=== PATIENT | male | born 1960 | race Caucasian/White ===

== ENCOUNTER 2017-01-07 06:01 | Inpatient (IN) | payer OTHER ==
--- NOTE | 2016-12-31 18:17 | PREOPHP ---
DATE OF ADMISSION: 01/07/2017 The patient is being admitted electively on 01/07/[address] Drake Jordan. HISTORY OF PRESENT ILLNESS: This 56-year-old man is being admitted now to have a right total knee r eplacement by Dr. Jordan. The patient was injured at work 11/24/2009. He has been having increas ing pain in his right knee and has failed medical therapy. He has decided to undergo a total knee r eplacement to relieve his pain and improve his ability to walk. CURRENT MEDICATIONS: The patient is not on any chronic medication. PAST MEDICAL HISTORY: Unremarkable. ALLERGIES: HE HAS NO KNOWN DRUG ALLERGIES. SURGICAL HISTORY: Right knee arthroscopy. FAMILY HISTORY: Both parents are . The cause of unknown for both mother and father. SOCIAL HISTORY: The patient does not smoke and does not drink alcohol. 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 REVIEW OF SYSTEMS: CONSTITUTIONAL: No chills, no weight gain, no loss of appetite, no fever, no weakness, no weight lo ss, no fatigue. OPHTHALMOLOGIC: Negative. EARS, NOSE AND THROAT: Negative. CARDIORESPIRATORY: He denies any exertional chest pain, chest pressure, cough, ankle swelling. GASTROINTESTINAL: Negative. HEMATOLOGIC AND LYMPHATIC: Negative. UROLOGIC: Negative. PHYSICAL EXAMINATION: GENERAL: At this time reveals a well-developed man. No apparent distress. VITAL SIGNS: Temperature 98, blood pressure 126/86, heart rate 76. Weight 254. HEAD: Normocephalic. EYES: Extraocular muscles intact. NOSE AND MOUTH: Normal. NECK: Supple. No neck vein distention. LUNGS: Clear to auscultation. HEART: Regular rhythm. No murmurs, gallops or rubs. ABDOMEN: Soft, nontender. No masses or megaly. EXTREMITIES: No peripheral edema. Pedal pulses were 2+ bilaterally. NEUROLOGIC: Grossly intact. IMPRESSION: This patient is cleared for surgery. I will follow the patient along with you postoper atively. Dictated By: RYDER MORRISON MD, ND/JUSTYN Conf#: [id number] DID#: [id number]
[2017-01-06 11:22] VITALS: BMI 29.5
[~2017-01-07] VITALS: Ht 193 cm; Wt 111.3 kg
[2017-01-07] VITALS (19 sets, daily range): BP systolic 92–152; BP diastolic 50–81; PULSE 65–104; RESP 13–30; Ht 193 cm; Wt 111.3 kg
[2017-01-07] MEDS: LACTATED RINGER'S 1,000 ML IV SCH (06:06)
[2017-01-07] MEDS ORDERED: CEFAZOLIN 2 GM/50 ML (PMX) 50 ML IVPB ONE (06:30)
[2017-01-07] MEDS ORDERED: METOCLOPRAMIDE 10 MG TAB PO ONE (06:30)
[2017-01-07] MEDS ORDERED: CELECOXIB 200 MG CAP PO ONE (06:30)
[2017-01-07] MEDS ORDERED: SOD CHLORIDE 0.9% IVPB ONE ×6 (06:30)
[2017-01-07] MEDS ORDERED: FAMOTIDINE 20 MG TAB PO ONE (06:30)
[2017-01-07] MEDS ORDERED: BUPIVACAINE 0.5% (SDV) 40 ML, morphine SULFATE (PF) 10 MG, CLONIDINE 100 MCG, EPINEPHri... IRR SCH ×7 (06:30)
[2017-01-07] MEDS ORDERED: TRANEXAMIC ACID IVPB ONE ×6 (06:30)
[2017-01-07] MEDS ORDERED: DEXAMETHASONE 4 MG/ML 1 ML INJ IV ONE (06:30)
--- NOTE | 2017-01-07 06:36 | HPN ---
Date/Time of Note Date/Time of Note DATE: 01/07/17 TIME: 06:36 Interval H&P Admission Note Pt. seen H&P reviewed: No system changes ALTHEA FERNANDES MD Jan 07, 2017 06:36
[2017-01-07] MEDS ORDERED: METHYLENE BLUE 10 MG/ML VIAL ONE (06:51)
[2017-01-07] MEDS ORDERED: POLYMYXIN/BACITRACIN 1L IRRIG ONE (06:51)
[2017-01-07] MEDS ORDERED: VANCOMYCIN 1 GM INJ ONE (06:51)
[2017-01-07] MEDS ORDERED: MAGNESIUM HYDROXIDE 30ML CUP PO PRN (07:00)
[2017-01-07] MEDS ORDERED: OXYCODONE/ACETAMINOPHEN (5/325) TAB PO PRN (07:00)
[2017-01-07] MEDS ORDERED: ETOMIDATE 20 MG INJ ONE (07:00)
[2017-01-07] MEDS ORDERED: HYDROmorphONE 1 MG/ML SYG IV PRN (07:00)
[2017-01-07] MEDS ORDERED: ACETAMINOPHEN 500 MG TAB PO PRN (07:00)
[2017-01-07] MEDS ORDERED: ROCURONIUM 50 MG INJ ONE (07:00)
[2017-01-07] MEDS ORDERED: LIDOCAINE 100 MG SYRINGE ONE (07:00)
[2017-01-07] MEDS ORDERED: HYDROmorphONE 2 MG/ML SYG IV PRN ×2 (07:00)
[2017-01-07] MEDS ORDERED: NALOXONE (0.4 MG/ML) INJ IV PRN (07:00)
[2017-01-07] MEDS ORDERED: ASPIRIN (EC) 325 MG TAB PO ONE (07:00)
[2017-01-07] MEDS ORDERED: PROPOFOL 100 ML ONE (07:00)
[2017-01-07] MEDS ORDERED: ONDANSETRON 4 MG INJ IV PRN ×2 (07:00→08:00)
[2017-01-07] MEDS ORDERED: CEFAZOLIN 1 GM INJ ONE (07:00)
[2017-01-07] MEDS ORDERED: MIDAZOLAM 1 MG/ML 2 ML INJ ONE (07:01)
[2017-01-07] MEDS ORDERED: FENTAnyl 50 MCG/ML VIAL ONE (07:01)
[2017-01-07] MEDS ORDERED: ONDANSETRON 4 MG INJ ONE (07:01)
[2017-01-07] MEDS ORDERED: morphine SULFATE/PF (10 MG/10 ML) INJ ONE (07:05)
[2017-01-07] MEDS ORDERED: PHENYLephrine (100 MCG/ML) 5ML SYG ONE (07:30)
[2017-01-07] MEDS ORDERED: hydrALAzine 20 MG INJ IV PRN (08:00)
[2017-01-07] MEDS ORDERED: MEPERIDINE 25 MG INJ IV PRN (08:00)
[2017-01-07] MEDS ORDERED: DIPHENHYDRAMINE 50 MG INJ IV PRN (08:00)
[2017-01-07] MEDS ORDERED: MIDAZOLAM 1 MG/ML 2 ML INJ IV PRN (08:00)
[2017-01-07] MEDS ORDERED: FENTAnyl 50 MCG/ML VIAL IV PRN ×3 (08:00)
[2017-01-07] MEDS ORDERED: LABETALOL HCL 20MG INJ IV PRN (08:00)
[2017-01-07] MEDS ORDERED: TRIMETHOBENZAMIDE 100 MG/ML VIAL IM PRN (08:00)
[2017-01-07] MEDS ORDERED: HYDROmorphONE (0.2 MG/ML) 10ML SYG IV PRN ×3 (08:00)
[2017-01-07] MEDS ORDERED: EPHEDrine SULFATE 50 MG/5 ML SYG IV PRN (08:00)
[2017-01-07] MEDS ORDERED: ROPIVACAINE 0.5 % 30 ML VIAL ONE (08:10)
[2017-01-07] MEDS ORDERED: GLYCOPYRROLATE 0.4 MG INJ ONE (08:31)
[2017-01-07] MEDS ORDERED: NEOSTIGMINE 3 MG/3 ML SYRINGE ONE (08:31)
[2017-01-07] MEDS: CEFAZOLIN 2 GM/50 ML (PMX) 50 ML IVPB SCH ×2 (10:25→22:10)
--- NOTE | 2017-01-07 11:05 | RADRPT ---
PROCEDURE: XR Right Tibia-Fibula CLINICAL INDICATION: Preop, at TKR TECHNIQUE: A single limited portable AP view of the left inferior aspect of the tibia and fibula whi ch excludes visualization of the tips of the medial lateral malleoli was submitted. COMPARISON: None FINDINGS: Osseous structures: A a small round defect is seen within the right tibial shaft which appears to be iatrogenic. Instrumentation projects through the distal tibia and talus. The underlying osseous e lements appear intact. Joint spaces: are well maintained, with no significant spurring, erosion or joint effusion evident. Soft tissues: The ankle mortise is anatomically maintained. IMPRESSION: 1. Extremely limited condyle in a single AP view demonstrating instrumentation projecting through t he right ankle joint. 2. A small round defect is seen within the tibial shaft which appears to be iatrogenic. Physician Karol Date Time Electronically viewed and signed by Baltazar Schneider Physician on 01/07/2017 11:05 /
[2017-01-07 11:06] LABS: ADD SCAN DIFF NO
--- NOTE | 2017-01-07 11:09 | OPR ---
DATE OF OPERATION: 01/07/2017 SURGEON: Althea Jordan MD [facility] ATTENDANT: Bradly Estrada MD The health care assistant functioned throughout the case to protect the collateral ligament and patellar tendon, allow for positioning of the knee and cementation technique, and was instrumental to the performanc e of this procedure. PREOPERATIVE DIAGNOSIS: Osteoarthritis, right knee. POSTOPERATIVE DIAGNOSIS: Osteoarthritis, right knee. OPERATION: Total knee replacement, Javier, posterior cruciate ligament substituting, 12 femur, G ti garcia, 13 polyethylene, 38 patella, OrthoSensor technique. ANESTHESIA: Spinal, general plus right adductor nerve blocks. The health care assistant functioned throughout the case to protect the collateral ligament, patellar tendon, an d allow for positioning of the knee and cementation technique and was instrumental to the performanc e of this procedure. PROCEDURE: The patient was taken to the operating room and given general anesthesia. The right low er extremity was prepared and draped in the usual manner. Range of motion showed flexion 120, exten kirsty lacked 15 degrees. A medial peripatellar incision was made. An arthrotomy was carried out. The patella was not everte d. The articular surface of the medial patellofemoral had grade 4 changes. The external alignment guide was then used for us to check rotation, then flexion-extension, and the n depth of cut. The anterior cruciate ligament and posterior cruciate ligament were both taken. Th e intramedullary alignment guide was used on the femur after careful enlargement of the hole and irr igation. The distal 12 mm of bone was resected, allowing complete extension after significant poste rior capsular release. The femur was externally rotated 3 degrees in line with Javier flexion-tensi on device. A trial reduction was carried out. After appropriate ligamentous releasing, all OrthoSensor measurements to 5, 30 and 90 were within 15 pounds. The patella measured 30 mm, and 14 mm were taken. The patella tracked with a no-touch nohemy hnique. The joint was copiously irrigated. The patella, femur, and tibia were inserted with a trial tibia. Range of motion was similar. A 13 mm tibial component was used, allowing complete extension and fl exion of 125 degrees, 1+ to 2+ AP drawer. There was trace to 1+ varus/valgus laxity at 30 degrees. The tourniquet was released. Tourniquet time was 71 minutes. Hemostasis was excellent. The knee was copiously irrigated. The capsule was closed with interrupted #1 Dexon and the subcutan eous tissue with 2-0 Dexon. The skin was closed with subcuticular and a compression dressing was ap plied. Dictated By: ALTHEA TREJO/JUSTYN Conf#: [id number] DID#: [id number]
[2017-01-07 11:12] LABS: BASOPHILS % 0.3 % (0.0-2.0); EOSINOPHILS % 0.3 % (0.0-7.0); HEMATOCRIT 39.7 % (42.0-52.0); HEMOGLOBIN 13.7 g/dl (14.0-18.0); LYMPHOCYTES # 0.7 10^3/ul (0.8-2.9); LYMPHOCYTES % 22.4 % (15.0-51.0); MEAN CORPUSCULAR HEMOGLOBIN 32.5 pg (29.0-33.0); MEAN CORPUSCULAR HGB CONC 34.5 g/dl (32.0-37.0); MEAN CORPUSCULAR VOLUME 94.3 fl (82.0-101.0); MEAN PLATELET VOLUME 10.2 fl (7.4-10.4); MONOCYTE # 0.1 10^3/ul (0.3-0.9); MONOCYTES % 1.6 % (0.0-11.0); NEUTROPHIL # 2.4 10^3/ul (1.6-7.5); NEUTROPHILS % 75.1 % (39.0-77.0); PLATELET COUNT 157 10^3/UL (140-415); RED BLOOD COUNT 4.21 10^6/ul (4.70-6.10); RED CELL DISTRIBUTION WIDTH 11.9 % (11.5-14.5); WHITE BLOOD COUNT 3.2 10^3/ul (4.8-10.8)
[2017-01-07 11:21] LABS: POTASSIUM 4.4 mmol/L (3.5-5.1)
[2017-01-07 11:23] LABS: CREATININE 1.1 mg/dl (0.61-1.24)
[2017-01-07 11:24] LABS: CALCIUM 8.5 mg/dl (8.4-10.2)
--- NOTE | 2017-01-07 11:49 | RADRPT ---
PROCEDURE: XR right knee. CLINICAL INDICATION: Knee pain. TECHNIQUE: AP and lateral views are available for review. COMPARISON: No comparison available FINDINGS: There is a postoperative total knee replacement. There is no evidence of loosening of the prosthesis . The osseous structures are normal in mineralization, architecture and alignment No acute fracture or dislocation is seen.No osseous lesions are identified. There are postoperative soft tissue ye es. . IMPRESSION: Unremarkable postoperative total knee replacement. Postoperative soft tissue changes RPTAT: HGDB .Issac Garcia MD, Date Time Electronically viewed and signed by .Issac Garcia MD, on 01/07/2017 11:49 .B/
[2017-01-07 12:17] LABS: ADD UMIC NO; URINE BILIRUBIN (Dip) NEGATIVE (NEGATIVE); URINE BLOOD (Dip) NEGATIVE (NEGATIVE); URINE COLOR LT. YELLOW (YELLOW); URINE GLUCOSE (Dip) NEGATIVE (NEGATIVE); URINE KETONES (Dip) NEGATIVE (NEGATIVE); URINE LEUKOCYTE ESTERASE (Dip) NEGATIVE (NEGATIVE); URINE NITRITE (Dip) NEGATIVE (NEGATIVE); URINE TOTAL PROTEIN (Dip) NEGATIVE (NEGATIVE); URINE UROBILINOGEN (Dip) 0.2 E.U./dL (0.1-1.0)
[2017-01-07] MEDS: D5W-0.45 NACL + KCL 20 MEQ 1,000 ML IV SCH (13:08)
[2017-01-07] MEDS: traMADol 50 MG TAB PO SCH (18:00)
--- NOTE | 2017-01-07 18:18 | CONS ---
DATE OF ADMISSION: 01/07/2017 DATE OF CONSULTATION: TYPE OF CONSULTATION: Medical. Thank you, Dr. Jordan, for asking me to participate in the medical management of this patient. HISTORY OF PRESENT ILLNESS: This 56-year-old man is now postop a right total knee replacement by Dr Dion Jordan. The patient was injured at work 11/24/2009. He has been having increasing pain in the right knee and has failed medical therapy. He has decided to undergo a right total knee replacement which was done this morning. The patient is awake and alert. He denies chest pain, shortness of b reath. His operative site is without pain and his pain management is going well. The patient was a lready up to walk today. The patient has no significant past medical history. MEDICATIONS: The patient is not on any chronic medication. ALLERGIES: HAS NO KNOWN DRUG ALLERGIES. PAST SURGICAL HISTORY: Right knee arthroscopy. FAMILY HISTORY: Both parents are . The cause of their deaths is unknown. SOCIAL HISTORY: The patient does not smoke and does not drink alcohol. 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 VITAL SIGNS: Temperature 97.8, pulse of 88, respirations 20, blood pressure 124/72, O2 saturation 9 9% on room air. HEENT: Head normocephalic. EYES: Extraocular muscles intact. NOSE AND MOUTH: Normal. NECK: Supple. No neck vein distention. LUNGS: Clear to auscultation. HEART: Regular rhythm. No murmurs, gallops or rubs. ABDOMEN: Soft, nontender, no masses or megaly. EXTREMITIES: No peripheral edema. IMPRESSION: This patient is doing well postoperatively. His vital signs are stable. He seems comf ortable. The patient's pain is well controlled. PLAN: 1. Continue current medication and physical therapy. 2. Check labs in the morning. 3. Postop total knee replacement protocol. 4. I will follow the patient along with you. Dictated By: RYDER MORRISON MD, ND/JUSTYN Conf#: [id number] DID#: [id number]
[2017-01-07] MEDS: SENNA/DOCUSATE NA (8.6MG/50MG) TAB PO SCH (21:00)
[2017-01-07] MEDS: METOCLOPRAMIDE 10 MG TAB PO SCH (21:16)
[2017-01-07] MEDS: CELECOXIB 200 MG CAP PO SCH (21:16)
[2017-01-07] MEDS: FAMOTIDINE 20 MG TAB PO SCH (21:17)
[2017-01-08 00:02] VITALS: BP 120/70; PULSE 86; RESP 19
[2017-01-08] MEDS: traMADol 50 MG TAB PO SCH ×4 (00:10→18:17)
[2017-01-08] MEDS: D5W-0.45 NACL + KCL 20 MEQ 1,000 ML IV SCH ×3 (00:11→18:00)
[2017-01-08 04:00] VITALS: BP 126/70; PULSE 85; RESP 18
[2017-01-08 05:07] LABS: ADD SCAN DIFF NO
[2017-01-08 05:10] LABS: BASOPHILS % 0.1 % (0.0-2.0); EOSINOPHILS % 0.1 % (0.0-7.0); HEMATOCRIT 32.8 % (42.0-52.0); HEMOGLOBIN 11.4 g/dl (14.0-18.0); LYMPHOCYTES # 1.3 10^3/ul (0.8-2.9); LYMPHOCYTES % 15.6 % (15.0-51.0); MEAN CORPUSCULAR HEMOGLOBIN 33.4 pg (29.0-33.0); MEAN CORPUSCULAR HGB CONC 34.8 g/dl (32.0-37.0); MEAN CORPUSCULAR VOLUME 96.2 fl (82.0-101.0); MEAN PLATELET VOLUME 10.5 fl (7.4-10.4); MONOCYTE # 0.7 10^3/ul (0.3-0.9); MONOCYTES % 8.1 % (0.0-11.0); NEUTROPHIL # 6.5 10^3/ul (1.6-7.5); NEUTROPHILS % 75.7 % (39.0-77.0); PLATELET COUNT 163 10^3/UL (140-415); RED BLOOD COUNT 3.41 10^6/ul (4.70-6.10); RED CELL DISTRIBUTION WIDTH 11.7 % (11.5-14.5); WHITE BLOOD COUNT 8.5 10^3/ul (4.8-10.8)
[2017-01-08 05:41] LABS: POTASSIUM 4.4 mmol/L (3.5-5.1)
[2017-01-08 05:43] LABS: CREATININE 1.01 mg/dl (0.61-1.24)
[2017-01-08 05:44] LABS: CALCIUM 8.2 mg/dl (8.4-10.2)
[2017-01-08] MEDS: CEFAZOLIN 2 GM/50 ML (PMX) 50 ML IVPB SCH (06:04)
[2017-01-08] MEDS: LACTATED RINGER'S 1,000 ML IV SCH (06:06)
[2017-01-08 08:41] VITALS: BP 106/55; RESP 18
[2017-01-08] MEDS: ASPIRIN (EC) 325 MG TAB PO SCH ×2 (08:45→21:12)
[2017-01-08] MEDS: CELECOXIB 200 MG CAP PO SCH ×2 (08:45→20:22)
[2017-01-08] MEDS: FAMOTIDINE 20 MG TAB PO SCH ×2 (08:45→20:22)
[2017-01-08] MEDS: METOCLOPRAMIDE 10 MG TAB PO SCH ×2 (08:46→20:23)
[2017-01-08] MEDS: SENNA/DOCUSATE NA (8.6MG/50MG) TAB PO SCH ×2 (08:46→20:23)
[2017-01-08] MEDS: OXYCODONE/ACETAMINOPHEN (5/325) TAB PO PRN ×2 (08:49→12:37)
--- NOTE | 2017-01-08 10:09 | PN ---
DATE: POSTOP DAY 1 Afebrile. Vital signs stable. No calf pain. Out of bed. PLAN: Continue mobilization per Dr. Blake. Dictated By: ALTEHA TREJO/JUSTYN Conf#: [id number] DID#: [id number]
[2017-01-08 10:35] LABS: ADD UMIC NO; URINE BILIRUBIN (Dip) NEGATIVE (NEGATIVE); URINE BLOOD (Dip) NEGATIVE (NEGATIVE); URINE COLOR LT. YELLOW (YELLOW); URINE GLUCOSE (Dip) NEGATIVE (NEGATIVE); URINE KETONES (Dip) NEGATIVE (NEGATIVE); URINE LEUKOCYTE ESTERASE (Dip) NEGATIVE (NEGATIVE); URINE NITRITE (Dip) NEGATIVE (NEGATIVE); URINE TOTAL PROTEIN (Dip) NEGATIVE (NEGATIVE); URINE UROBILINOGEN (Dip) 0.2 E.U./dL (0.1-1.0)
--- NOTE | 2017-01-08 12:21 | CONS ---
Date/Time of Note Date/Time of Note DATE: 01/08/17 TIME: 12:19 Assessment/Plan Assessment/Plan Chief Complaint/Hosp Course He is 1 day post op R TKR . He is doing well . Continue current medication and PT . Problems: Consultation Date/Type/Reason Admit Date/Time Jan 07, 2017 at 06:01 Initial Consult Date 24 HR Interval Summary Free Text/Dictation He is awake and alert . Constitutional: improved, no complaints Exam/Review of Systems Vital Signs Vitals Vital Signs Date Time Temp Pulse Resp B/P Pulse Ox O2 Delivery O2 Flow Rate FiO2 01/08/17 08:41 98.0 67 18 106/55 97 01/08/17 04:00 Room Air Intake and Output 01/07/17 01/07/17 01/08/17 15:00 23:00 07:00 Intake Total 4500 ml 1050 ml 1750 ml Output Total 350 ml 800 ml 1500 ml Balance 4150 ml 250 ml 250 ml Exam Constitutional: alert, oriented, well developed Psych: no complaints Respiratory: clear to auscultation, normal air movement Cardiovascular: regular rate and rhythm Musculoskeletal: nl extremities to inspection Results Result Diagram: 01/08/17 0438 01/08/17 0438 Results 24 hrs Laboratory Tests Test 01/08/17 04:38 01/08/17 04:45 Anion Gap 13 Basophils # 0.0 Basophils % 0.1 Blood Urea Nitrogen 20 Calcium Level 8.2 L Carbon Dioxide Level 27 Chloride Level 103 Creatinine 1.01 Eosinophils # 0.0 Eosinophils % 0.1 Glucose Level 100 Hematocrit 32.8 L Hemoglobin 11.4 L Lymphocytes # 1.3 Lymphocytes % 15.6 Mean Corpuscular Hemoglobin 33.4 H Mean Corpuscular Hemoglobin Concent 34.8 Mean Corpuscular Volume 96.2 Mean Platelet Volume 10.5 H Monocytes # 0.7 Monocytes % 8.1 Neutrophils # 6.5 Neutrophils % 75.7 Nucleated Red Blood Cells # 0.0 Nucleated Red Blood Cells % 0.0 Platelet Count 163 Potassium Level 4.4 Red Blood Count 3.41 L Red Cell Distribution Width 11.7 Sodium Level 139 White Blood Count 8.5 # Urine Bilirubin NEGATIVE Urine Clarity CLEAR Urine Color LT. YELLOW Urine Glucose NEGATIVE Urine Hemoglobin NEGATIVE Urine Ketones NEGATIVE Urine Leukocyte Esterase NEGATIVE Urine Nitrite NEGATIVE Urine Specific [place] <=1.005 L Urine Total Protein NEGATIVE Urine Urobilinogen 0.2 E.U./dL Urine pH 6.0 Medications Medications Current Medications Lactated Ringer's (Lr) 1,000 ml @ 25 mls/hr Q24H IV ; Start 01/07/17 at 06:06 Tramadol HCl (Ultram) 50 mg Q6 PO Last administered on 01/08/17 06:04; Admin Dose 50 MG; Start 01/07/17 at 18:00 Oxycodone/ Acetaminophen (Percocet (5/ 325)) 1 tab Q3H PRN PO PAIN LEVEL 1-5 Last administered on 01/08/17 08:49; Admin Dose 1 TAB; Start 01/07/17 at 07:00 Oxycodone/ Acetaminophen (Percocet (5/ 325)) 2 tab Q3H PRN PO PAIN LEVEL 6-10; Start 01/07/17 at 07:00 Hydromorphone HCl (Dilaudid) 1 mg Q3H PRN IV PAIN LEVEL 1-3; Start 01/07/17 at 07:00 Hydromorphone HCl (Dilaudid) 1.5 mg Q3H PRN IV PAIN LEVEL 4-6; Start 01/07/17 at 07:00 Hydromorphone HCl (Dilaudid) 2 mg Q3H PRN IV PAIN LEVEL 7-10; Start 01/07/17 at 07:00 Naloxone HCl (Narcan) 0.2 mg Q2M PRN IV RESPIRATORY RATE LESS THAN 8; Start 01/07/17 at 07:00 Senna/Docusate Sodium (Senokot-S) 1 tab BID PO ; Start 01/07/17 at 21:00 Magnesium Hydroxide (Milk Of Mag) 30 ml BID PRN PO CONSTIPATION; Start 01/07/17 at 07:00 Magnesium Hydroxide (Milk Of Mag) 30 ml HS PO ; Start 01/09/17 at 21:00 Ondansetron HCl (Zofran Inj) 4 mg Q4H PRN IV NAUSEA; Start 01/07/17 at 07:00 Acetaminophen (Tylenol Tab) 1,000 mg Q4H PRN PO TEMP GREATER THAN 100.4 (ORAL) ; Start 01/07/17 at 07:00 Celecoxib (Celebrex) 200 mg BID PO Last administered on 01/08/17 08:45; Admin Dose 200 MG; Start 01/07/17 at 21:00 Famotidine (Pepcid) 20 mg BID PO Last administered on 01/08/17 08:45; Admin Dose 20 MG; Start 01/07/17 at 21:00 Metoclopramide HCl (Reglan) 10 mg BID PO Last administered on 01/08/17 08:46; Admin Dose 10 MG; Start 01/07/17 at 21:00 Aspirin 325 mg 325 mg BID PO Last administered on 01/08/17 08:45; Admin Dose 325 MG; Start 01/08/17 at 09:00 Potassium Chloride/Dextrose/ Sod Cl (D5-1/2ns + KCl 20 Meq) 1,000 ml @ 100 mls/ hr Q10H IV Last administered on 01/08/17 00:11; Admin Dose 100 MLS/HR; Start at 12:00 RYDER MORRISON MD Jan 08, 2017 12:21
[2017-01-08 20:14] VITALS: BP 102/57; RESP 20
[2017-01-09] MEDS: traMADol 50 MG TAB PO SCH ×2 (00:39→05:18)
[2017-01-09] MEDS: D5W-0.45 NACL + KCL 20 MEQ 1,000 ML IV SCH (04:00)
[2017-01-09] MEDS: LACTATED RINGER'S 1,000 ML IV SCH (04:37)
[2017-01-09 04:48] LABS: ADD SCAN DIFF NO
[2017-01-09 04:51] LABS: BASOPHILS % 0.3 % (0.0-2.0); EOSINOPHILS # 0.1 10^3/ul (0.0-0.5); EOSINOPHILS % 3.3 % (0.0-7.0); HEMOGLOBIN 11.2 g/dl (14.0-18.0); LYMPHOCYTES # 1.8 10^3/ul (0.8-2.9); LYMPHOCYTES % 49.6 % (15.0-51.0); MEAN CORPUSCULAR HEMOGLOBIN 32.7 pg (29.0-33.0); MEAN CORPUSCULAR HGB CONC 33.9 g/dl (32.0-37.0); MEAN CORPUSCULAR VOLUME 96.2 fl (82.0-101.0); MEAN PLATELET VOLUME 10.5 fl (7.4-10.4); MONOCYTE # 0.3 10^3/ul (0.3-0.9); MONOCYTES % 8.8 % (0.0-11.0); NEUTROPHIL # 1.4 10^3/ul (1.6-7.5); PLATELET COUNT 127 10^3/UL (140-415); RED BLOOD COUNT 3.43 10^6/ul (4.70-6.10); RED CELL DISTRIBUTION WIDTH 11.9 % (11.5-14.5); WHITE BLOOD COUNT 3.6 10^3/ul (4.8-10.8)
[2017-01-09 05:18] LABS: POTASSIUM 4.8 mmol/L (3.5-5.1)
[2017-01-09 05:21] LABS: CALCIUM 8.5 mg/dl (8.4-10.2); CREATININE 1.13 mg/dl (0.61-1.24)
[2017-01-09 08:21] VITALS: BP 109/64; RESP 16
[2017-01-09] MEDS: METOCLOPRAMIDE 10 MG TAB PO SCH (08:34)
[2017-01-09] MEDS: FAMOTIDINE 20 MG TAB PO SCH (08:34)
[2017-01-09] MEDS: SENNA/DOCUSATE NA (8.6MG/50MG) TAB PO SCH (08:34)
[2017-01-09] MEDS: CELECOXIB 200 MG CAP PO SCH (08:34)
[2017-01-09] MEDS: ASPIRIN (EC) 325 MG TAB PO SCH (08:34)
--- NOTE | 2017-01-09 10:25 | CONS ---
Date/Time of Note Date/Time of Note DATE: 01/09/17 TIME: 10:23 Assessment/Plan Assessment/Plan Chief Complaint/Hosp Course He is 2 days post op R TKR . He is doing well . Continue current medication and PT . He is ready for discharge today. He will follow up with Dr. Jordan. Problems: Consultation Date/Type/Reason Admit Date/Time Jan 07, 2017 at 06:01 Type of Consultation: medicine 24 HR Interval Summary Free Text/Dictation He is now 2 days postop a right total knee replacement. He is doing well. Constitutional: improved, no complaints Exam/Review of Systems Vital Signs Vitals Vital Signs Date Time Temp Pulse Resp B/P Pulse Ox O2 Delivery O2 Flow Rate FiO2 01/09/17 08:21 97.9 69 16 109/64 95 01/08/17 04:00 Room Air Intake and Output 01/08/17 01/08/17 01/09/17 15:00 23:00 07:00 Intake Total 600 ml 400 ml Output Total 800 ml Balance 600 ml -400 ml Exam Constitutional: alert, oriented, well developed Psych: nl mood/affect, no complaints Respiratory: clear to auscultation, normal air movement Cardiovascular: nl pulses, regular rate and rhythm Musculoskeletal: nl extremities to inspection Results Result Diagram: 01/09/17 0425 01/09/17 0425 Results 24 hrs Laboratory Tests Test 01/09/17 04:25 Anion Gap 13 Basophils # 0.0 Basophils % 0.3 Blood Urea Nitrogen 23 H Calcium Level 8.5 Carbon Dioxide Level 30 Chloride Level 106 Creatinine 1.13 Eosinophils # 0.1 Eosinophils % 3.3 Glucose Level 105 Hematocrit 33.0 L Hemoglobin 11.2 L Lymphocytes # 1.8 Lymphocytes % 49.6 Mean Corpuscular Hemoglobin 32.7 Mean Corpuscular Hemoglobin Concent 33.9 Mean Corpuscular Volume 96.2 Mean Platelet Volume 10.5 H Monocytes # 0.3 Monocytes % 8.8 Neutrophils # 1.4 L Neutrophils % 38.0 L Nucleated Red Blood Cells # 0.0 Nucleated Red Blood Cells % 0.0 Platelet Count 127 #L Potassium Level 4.8 Red Blood Count 3.43 L Red Cell Distribution Width 11.9 Sodium Level 144 White Blood Count 3.6 #L Medications Medications Current Medications Lactated Ringer's (Lr) 1,000 ml @ 25 mls/hr Q24H IV ; Start 01/07/17 at 06:06 Tramadol HCl (Ultram) 50 mg Q6 PO Last administered on 01/09/17 05:18; Admin Dose 50 MG; Start 01/07/17 at 18:00 Oxycodone/ Acetaminophen (Percocet (5/ 325)) 1 tab Q3H PRN PO PAIN LEVEL 1-5 Last administered on 01/08/17 12:37; Admin Dose 1 TAB; Start 01/07/17 at 07:00 Oxycodone/ Acetaminophen (Percocet (5/ 325)) 2 tab Q3H PRN PO PAIN LEVEL 6-10 Last administered on 01/08/17 18:19; Admin Dose 2 TAB; Start 01/07/17 at 07:00 Hydromorphone HCl (Dilaudid) 1 mg Q3H PRN IV PAIN LEVEL 1-3; Start 01/07/17 at 07:00 Hydromorphone HCl (Dilaudid) 1.5 mg Q3H PRN IV PAIN LEVEL 4-6; Start 01/07/17 at 07:00 Hydromorphone HCl (Dilaudid) 2 mg Q3H PRN IV PAIN LEVEL 7-10; Start 01/07/17 at 07:00 Naloxone HCl (Narcan) 0.2 mg Q2M PRN IV RESPIRATORY RATE LESS THAN 8; Start 01/07/17 at 07:00 Senna/Docusate Sodium (Senokot-S) 1 tab BID PO Last administered on 01/09/17 08 :34; Admin Dose 1 TAB; Start 01/07/17 at 21:00 Magnesium Hydroxide (Milk Of Mag) 30 ml BID PRN PO CONSTIPATION; Start 01/07/17 at 07:00 Magnesium Hydroxide (Milk Of Mag) 30 ml HS PO ; Start 01/09/17 at 21:00 Ondansetron HCl (Zofran Inj) 4 mg Q4H PRN IV NAUSEA; Start 01/07/17 at 07:00 Acetaminophen (Tylenol Tab) 1,000 mg Q4H PRN PO TEMP GREATER THAN 100.4 (ORAL) ; Start 01/07/17 at 07:00 Celecoxib (Celebrex) 200 mg BID PO Last administered on 01/09/17 08:34; Admin Dose 200 MG; Start 3/1/17 at 21:00 Famotidine (Pepcid) 20 mg BID PO Last administered on 01/09/17 08:34; Admin Dose 20 MG; Start 01/07/17 at 21:00 Metoclopramide HCl (Reglan) 10 mg BID PO Last administered on 01/09/17 08:34; Admin Dose 10 MG; Start 01/07/17 at 21:00 Aspirin 325 mg 325 mg BID PO Last administered on 01/09/17 08:34; Admin Dose 325 MG; Start 01/08/17 at 09:00 Potassium Chloride/Dextrose/ Sod Cl (D5-1/2ns + KCl 20 Meq) 1,000 ml @ 100 mls/ hr Q10H IV Last administered on 01/08/17 00:11; Admin Dose 100 MLS/HR; Start at 12:00 RYDER MORRISON MD Jan 09, 2017 10:25
--- NOTE | 2017-01-09 10:26 | PDOCDIS ---
Discharge Instructions CONDITION Patient Condition: Good HOME CARE INSTRUCTIONS: Diet Instructions: Regular ACTIVITY: Activity Restrictions: Slowly Increase Activity Rest between Activity Do not Drive Partial Weight Bearing Bathing Restrictions: Shower FOLLOW UP/APPOINTMENTS Appointments RYDER Rae MD Jan 09, 2017 10:26
[2017-01-09] MEDS ORDERED: MAGNESIUM HYDROXIDE 30ML CUP PO SCH (21:00)
== END 2017-01-09 12:00 | disposition home health service (06) | DRG 470 ==
LOC: REC 06:01 → MS1 11:21
PROVIDERS: ADMIT Orthopaedic Surgery; ATTEND Orthopaedic Surgery
PROC: 0SRC0J9 Replacement of Right Knee Joint with Synthetic Substitute, Cemented, Open Approach (ICD-10-PCS; principal; 2017-01-07 07:00)
DX: M17.11 Unilateral primary osteoarthritis, right knee (principal); Z79.82 Long term (current) use of aspirin
CPT/HCPCS: 73560; 73590; 80048; 81003; 85025; 86850; 86900; 86901; 87086; 97110; 97116; 97162; 97530; J0171; J0690; J0735; J1100; J1885; J2001; J2250; J2274; J2370; J2405; J2710; J2795; J3010; J3370; J3480; J7120